=== PATIENT | male | born 1980 | race Caucasian/White ===

== ENCOUNTER 2021-09-02 14:24 | Emergency (ER) | payer MEDICAID | END 2021-09-02 15:49 | disposition home or self-care (01) | LOC: ER1 14:24 | DX: S63.92XA Sprain of unspecified part of left wrist and hand, initial encounter (principal); W22.8XXA Striking against or struck by other objects, initial encounter; Y92.009 Unspecified place in unspecified non-institutional (private) residence as the place of occurrence of the external cause | CPT/HCPCS: 73110; 73130; 99283 ==

== ENCOUNTER 2021-10-07 22:36 | Emergency (ER) | payer OTHER ==
[2021-10-07 23:24] LABS: HEMOGLOBIN 16.7 gm/dl (14.0-17.5); RED BLOOD COUNT 5.48 M/UL (4.20-5.50); WHITE BLOOD COUNT 12.8 K/UL (4.5-11.0)
[2021-10-07 23:49] LABS: BUN/CREATININE RATIO 24 (0-10)
[2021-10-08] MEDS ORDERED: ZOFRAN ODT 4 MG4 MG SL (03:09)
== END 2021-10-08 03:30 | disposition home or self-care (01) ==
LOC: ER1 22:36
PROVIDERS: Emergency Medicine
DX: R11.2 Nausea with vomiting, unspecified (principal); E86.0 Dehydration
CPT/HCPCS: 71045; 80053; 80307; 81001; 82009; 82550; 82553; 82800; 83690; 84484; 85025; 87086; 93005; 96361; 96365; 96375; 99284; G0480; J2405; J2550; Q9967